=== PATIENT | female | born 1985 | race Caucasian/White ===

== ENCOUNTER 2021-03-19 09:54 | Emergency (ER) | payer OTHER, SELFPAY ==
[2021-03-19 10:02] VITALS: BP 157/90; PULSE 68; RESP 16; TEMP 36.2; O2SAT 98
--- NOTE | 2021-03-19 10:15 | ED.URI ---
HPI - URI/Sore Throat General Chief Complaint: Upper Respiratory Infection Stated Complaint: sore throat Time Seen by Provider: 03/19/21 10:15 Source: patient and RN notes reviewed Mode of arrival: ambulatory Limitations: no limitations History of Present Illness HPI Narrative: 36-year-old female presents to the [facility] for sore throat. Took Aleve yesterday which helped. States she took Luana today. Reports that she was Covid tested today at [facility], rapid was negative, PCR was pending. MD elicited complaint: sore throat Related Data Home Medications Medication Instructions Recorded Confirmed fluoxetine 40 mg PO DAILY 03/19/21 03/19/21 ropinirole 0.25 mg PO BID 03/19/21 03/19/21 Allergies Allergy/AdvReac Type Severity Reaction Status Date / Time No Known Allergies Allergy Verified 03/19/21 10:14 Review of Systems Constitutional: Constitutional: Reports no additional constitutional complaints, Denies chills and Denies fever(s) Eyes: Eyes: Reports no additional eye complaints ENT: Reports as per HPI, Reports nasal congestion and Reports sore throat Cardiovascular: Cardiovascular: Reports no additional cardiovascular complaints and Denies chest pain Respiratory: Respiratory: Reports no additional respiratory complaints, Denies cough and Denies dyspnea Gastrointestinal: Gastrointestinal: Reports no additional gastrointestinal complaints, Denies abdominal pain and Denies nausea Musculoskeletal: Musculoskeletal: Reports no additional musculoskeletal complaints Integumentary/Breasts: Skin/Breast: Reports system reviewed and no additional complaints, except as docu Neurologic: Reports system reviewed and no additional complaints, except as documented Psychiatric: Psychiatric: Reports no additional psychiatric complaints Allergic/Immunologic: Allergic/Immunologic: Reports no additional allergic/immunologic complaints [facility] Past Medical History Medical History (Updated 03/19/21 @ 11:11 by Krystle Maldonado) Anxiety and depression Restless leg Surgical History Surgical History (Updated 03/19/21 @ 10:23 by Krystle Maldonado) No significant past surgical history Social History Social History (Updated 03/19/21 @ 10:23 by Krystle Maldonado) Living arrangements: with family Gender identity (if verbalized by the patient): Female Comments At the time of my signature, I reviewed and agree with the nursing past medical, surgical, social, and family history. There is no relevant family history pertinent to the patient complaint. Exam Const: General: healthy appearing, no acute distress and alert Nutritional Appearance: well nourished Orientation/consciousness: patient oriented x3 Limitations: no limitations HENMT: Head: normal to inspection Ears: external ears normal, TM's normal bilaterally and EAC's normal General nose exam: Normal external nose present Face and sinus: normal facial exam and sinuses nontender Mouth: Yes moist mucous membranes Throat: tonsils normal, uvula midline, postnasal drainage and no uvular edema Eyes: Conjunctivae: conjunctivae normal Pupils: Equal, round and reactive pupils present Neck: Neck: normal visual inspection, no lymphadenopathy and no meningeal signs Chest: Chest palpation & inspection: normal inspection of the chest Resp: Effort & Inspection: normal respiratory effort and no use of accessory muscles Auscultation: clear to auscultation bilaterally, no crackles, no rales, no rhonchi and no wheezes Cardio: Rate: regular rate Rhythm: regular rhythm Back/Spine/Pelvis: Back: no CVA tenderness Skin: General skin exam: normal color Rashes: no rashes Neuro: General: patient oriented x3, moves all extremities, no meningeal signs and no focal motor deficits Speech: normal speech Gait exam (Neuro): Normal gait present Extrem: General: normal to inspection and no pedal edema Psych: Appearance: grossly normal and well kempt Mental Status: mental status grossly norm
== END 2021-03-19 10:30 | disposition home or self-care (01) ==
PROVIDERS: Emergency Provider Nurse Practitioner
DX: R09.82 Postnasal drip (principal); J06.9 Acute upper respiratory infection, unspecified; F41.9 Anxiety disorder, unspecified; F32.A Depression, unspecified; G25.81 Restless legs syndrome
CPT/HCPCS: 87081; 87880; 99213; G0463

== ENCOUNTER 2023-08-06 06:32 | Emergency (ER) | payer OTHER, SELFPAY ==
[2023-08-06] VITALS (11 sets, daily range): BP systolic 127–151; BP diastolic 73–98; PULSE 65–74; RESP 16; TEMP 37.2; O2SAT 94–100
[2023-08-06 07:09] LABS: Basophils Absolute Auto 0.1 K/mm3 (0.0-0.1); Basophils Percent Auto 0.3 % (0.2-1.2); Eosinophils Absolute Auto 7.2 K/mm3 (0-0.3); Eosinophils Percent Auto 37.7 % (0-4.4); Hematocrit 39.4 % (37.0-47.0); Hemoglobin 12.9 g/dL (12.0-15.0); Immature Granulocyte Absolute 0.08 K/mm3 (0.00-0.031); Immature Granulocyte Percent A 0.4 % (0-0.5); Lymphocytes Absolute Auto 1.96 K/mm3 (0.9-3.2); Lymphocytes Percent Auto 10.2 % (18.3-44.2); Mean Corpuscular HGB Conc 32.7 g/dl (32-36); Mean Corpuscular Hemoglobin 27.5 pg (26-34); Mean Platelet Volume 8.2 fl (7.4-10.4); Monocytes Absolute Auto 0.7 K/mm3 (0.1-0.6); Monocytes Percent Auto 3.7 % (2.6-8.5); Neutrophils Absolute Auto 9.1 K/mm3 (1.3-6.7); Neutrophils Percent Auto 47.7 % (45.5-73.1); Platelet Count Result 273 k/mm3 (150-375); Red Blood Count 4.69 M/mm3 (4.2-5.4); Red Cell Distribution Width 14.4 % (11.5-14.5); White Blood Count 19.2 K/mm3 (4.5-10.0)
[2023-08-06 07:14] LABS: Appearance Urine Clear (Clear); Bilirubin Urine Negative (Negative); Blood Urine Negative (Negative); Color Urine Yellow (Yellow); Glucose Urine UA Negative (Negative); Ketones Urine Negative (Negative); Leukocyte Esterase Ur Negative LEU/UL (Negative); Nitrate Urine Negative (Negative); Protein Urine Negative (Negative); Specific Grav Ur 1.009 (1.001-1.035); Urobilinogen Urine 0.2 mg/dL (<2.0)
--- NOTE | 2023-08-06 07:16 | ED.ABDPAIN ---
HPI - Abdominal Pain General Chief Complaint: Abdominal Pain Stated Complaint: abd pain Time Seen by Provider: 08/06/23 06:58 History of Present Illness HPI narrative: Patient is a 38-year-old female who presents ER with abdominal cramping as well as diarrhea. Ten episodes of diarrhea a day for last 3 days. No blood. No antibiotics. No known sick contacts. Denies fevers or chills or sweats. Reports this occurs yearly. She has had an IBD workup that was unremarkable. No alleviating factors. Related Data Home Medications Medication Instructions Recorded Confirmed ropinirole 0.25 mg tablet 0.25 mg PO BID 03/19/21 03/19/21 fluoxetine 40 mg capsule 80 mg PO DAILY 07/03/23 Allergies Allergy/AdvReac Type Severity Reaction Status Date / Time No Known Allergies Allergy Verified 07/03/23 10:58 Review of Systems Review of Systems: All systems reviewed & are unremarkable except as noted in HPI and below Constitutional: Constitutional: Reports no additional constitutional complaints ENT: Reports system reviewed and no additional complaints, except as documented Cardiovascular: Cardiovascular: Reports no additional cardiovascular complaints Respiratory: Respiratory: Reports no additional respiratory complaints Gastrointestinal: Gastrointestinal: Reports abdominal pain, Reports diarrhea, Denies nausea and Denies vomiting Genitourinary: Genitourinary: Reports no additional female genitourinary complaints Musculoskeletal: Musculoskeletal: Reports no additional musculoskeletal complaints [facility] Past Medical History Medical History (Updated 08/06/23 @ 08:56 by River Hidalgo MD) Anxiety and depression IBS (irritable bowel syndrome) Restless leg Surgical History Surgical History (Updated 08/06/23 @ 07:19 by River Hidalgo MD) History of cholecystectomy History of tonsillectomy Family History Family History (Updated 07/03/23 @ 11:03 by Yandy Dockery) Father MDS (myelodysplastic syndrome) Leukemia Mother Hypertension Grandparent Heart disease Cerebrovascular accident Social History Social History (Updated 07/03/23 @ 11:04 by Yandy Dockery) Years smoked: 15 Smoking status: Former smoker Alcohol intake: never Substance use: current Substance use type: marijuana Do You Feel Safe in your Home?: Yes Lack of Transportation: No Lack of Food: Never True Current Housing: I Have Housing Concerned About Future Housing: No Difficulty Paying Gas/Electric Bills: No Difficulty Paying for Meds: No Currently Unemployed: No Education: Bachelor's Degree Difficulty w/ Childcare or Family Care: No Living arrangements: with family Gender identity (if verbalized by the patient): Female Exam Narrative: GENERAL: Well-appearing, well-nourished, and in no acute distress. HEAD: Normocephalic, atraumatic. ENT: Mucous membranes moist. TM's normal. CHEST: Clear to auscultation. No respiratory distress. HEART: Regular rate and rhythm. Normal peripheral pulses. ABDOMEN: Soft, nontender, nondistended. EXTREMITIES: Normal range of motion. No edema. SKIN: Warm, dry, no rash. NEURO: Alert and oriented x3. PSYCH: Normal mood and affect. Course Course Emergency Course: Patient resting comfortably. Feels improved Zofran. Discharged on steroid taper for use in felt gastroenteritis. Patient reports her white blood cell count is typically elevated when this is occurring. She has no localizing tenderness on exam. Nontoxic appearing. Tolerating p.o.. Vital Signs Vital signs: Vital Signs Temperature 98.9 F 08/06/23 06:35 Pulse Rate 74 08/06/23 06:35 Respiratory Rate 16 08/06/23 06:35 Blood Pressure 151/98 H 08/06/23 06:35 Pulse Oximetry 100 08/06/23 06:35 Oxygen Delivery Room Air 08/06/23 06:35 Temperature 98.9 F 08/06/23 06:35 Pulse Rate 65 08/06/23 07:00 Respiratory Rate 16 08/06/23 07:00 Blood Pressure 127/73
[2023-08-06 07:26] LABS: Alanine Aminotransferase 15 U/L (6-35); Albumin Level 4.3 g/dL (3.5-5.1); Alkaline Phosphatase 92 U/L (38-126); Anion Gap 7 mmol/L (4-12); Aspartate Amino Transferase 20 U/L (14-36); Bilirubin,Total 0.4 mg/dL (0.2-1.3); Blood Urea Nitrogen 7 mg/dL (7-17); Carbon Dioxide 22 mmol/L (22-30); Chloride 107 mmol/L (98-107); Estimated CRCL calculation 147 ml/min; Estimated Glomerular Filt Rate > 60; Glucose 108 mg/dL (65-110); Lipase 303 U/L (23-300); Potassium 4.3 mmol/L (3.4-5.0); Sodium 136 mmol/L (137-145)
[2023-08-06] MEDS: ONDANSETRON INJ 4 MG/2 ML VIAL IV PUSH (07:29)
[2023-08-06] MEDS: BELLADONNA ALK/PHENOB ELIX 10 ML, MAG HYDROX/ALUMINUM HYD/SIMETH 30 ML, LIDOCAINE HCL 2... PO (07:29)
[2023-08-06 07:59] LABS: Add Urine Microscopic? NO
== END 2023-08-06 09:18 | disposition home or self-care (01) ==
PROVIDERS: Emergency Medicine; Emergency Provider Emergency Medicine; PCP Family Medicine
DX: K52.81 Eosinophilic gastritis or gastroenteritis (principal); F41.9 Anxiety disorder, unspecified; F32.A Depression, unspecified; G25.81 Restless legs syndrome; Z87.891 Personal history of nicotine dependence; Z90.49 Acquired absence of other specified parts of digestive tract
CPT/HCPCS: 36415; 80053; 81003; 81025; 83690; 85025; 96374; 99284; A9270; J2405

== ENCOUNTER 2023-09-28 00:57 | Day surgery (SDC) | payer OTHER, SELFPAY ==
[2023-09-17 10:30] VITALS: BMI 41.2
[2023-09-28 06:29] VITALS: BP 137/94; PULSE 88; RESP 17; TEMP 36.6; O2SAT 98
[2023-09-28] MEDS: LACTATED RINGERS 1,000 ML 150 ML IV CONT (06:40)
--- NOTE | 2023-09-28 07:18 | WPDANESEPPF ---
Anes - Initial Pre Proc Eval Procedure: Operation Date: 09/28/23 07:30 Proposed Procedures p Esophagogastroduodenoscopy & Colonoscopy - Juan J Rojas MD Date/Time: 09/28/23 07:18 Surgeon: Juan J Rojas MD Pre Op Diagnosis: Dysphagia, Gerd, Diarrhea, IBS-D Patient Data Age: 38 Gender: F Height: 1.63 m Weight: 106.8 kg Last Vital Signs Temp 97.8 F 09/28/23 06:29 Pulse 88 09/28/23 06:29 Resp 17 09/28/23 06:29 BP 137/94 H 09/28/23 06:29 Pulse Ox 98 09/28/23 06:29 O2 Del Method Room Air 09/28/23 06:29 Allergies Allergy/AdvReac Type Severity Reaction Status Date / Time No Known Allergies Allergy Verified 09/28/23 06:27 Home Medications Medication Instructions Recorded Confirmed Type ropinirole 0.25 mg tablet 0.25 mg PO BID 03/19/21 09/17/23 History fluoxetine 40 mg capsule 80 mg PO DAILY 07/03/23 09/17/23 History dicyclomine 10 mg capsule 10 mg PO QID PRN Diarrhea 09/17/23 09/17/23 History Patient hx anesthesia problems: none Family hx anesthesia problems: none Results Review: All pre-operative results and documents have been reviewed as part of the pre-operative evaluation. [facility] Past Medical History Medical History Anxiety and depression IBS (irritable bowel syndrome) Restless leg Surgical History Surgical History History of cholecystectomy History of tonsillectomy Family History Family History Father MDS (myelodysplastic syndrome) Leukemia Mother Hypertension Grandparent Heart disease Cerebrovascular accident Social History Social History Years smoked: 15 Smoking status: Former smoker Tobacco type: cigarettes Alcohol intake: never Substance use: current Substance use type: marijuana Do You Feel Safe in your Home?: Yes Lack of Transportation: No Lack of Food: Never True Current Housing: I Have Housing Concerned About Future Housing: No Difficulty Paying Gas/Electric Bills: No Difficulty Paying for Meds: No Currently Unemployed: No Education: Bachelor's Degree Difficulty w/ Childcare or Family Care: No Living arrangements: with family Gender identity (if verbalized by the patient): Female Spiritual care concerns: No Anes - Eval Final PreProcedure Day of Procedure 09/28/23 07:18 Patient weight: morbidly obese Heart: regular rate and rhythm Lungs: clear to auscultation Airway: Mallampati scale class II Neurological: alert and oriented Last oral intake: >/= 8 hours ASA classification: III Emergent: no Anesthetic plan: proceed Anesthesia type and monitoring: general GIVS and standard monitoring Results Review: All pre-operative results and documents have been reviewed as part of the pre-operative evaluation. Informed Consent: The patient's anesthetic plan and its attendant risks and benefits were discussed with the patient/family/POA. Questions were solicited and answers provided to the satisfaction of the patient/family/POA.
--- NOTE | 2023-09-28 07:33 | PM.HPGS ---
History of Present Illness History of Present Illness Consent: Risks, benefits, and alternatives have been discussed and questions answered. Patient agrees to proceed with procedure. Chief complaint: Dysphagia, Gerd, Diarrhea, IBS-D Narrative: Vicky Rubin is a 38 year old female here for egd and colonoscopy, last time about 6 years ago. She has years of diarrhea and abdominal pain and was Dx with gastroenteritis and started empirically taper course of prednisone. Patient states that over the past few years she has intermittent episodes of a collection of symptoms including abdominal pain, bloating, swallowing difficulty, reflux, and diarrhea Review of Systems Review of Systems: All systems reviewed & are unremarkable except as noted in HPI and below PMFSH Past Medical History Medical History Anxiety and depression IBS (irritable bowel syndrome) Restless leg Surgical History Surgical History History of cholecystectomy History of tonsillectomy Family History Family History Father MDS (myelodysplastic syndrome) Leukemia Mother Hypertension Grandparent Heart disease Cerebrovascular accident Social History Social History Years smoked: 15 Smoking status: Former smoker Tobacco type: cigarettes Alcohol intake: never Substance use: current Substance use type: marijuana Do You Feel Safe in your Home?: Yes Lack of Transportation: No Lack of Food: Never True Current Housing: I Have Housing Concerned About Future Housing: No Difficulty Paying Gas/Electric Bills: No Difficulty Paying for Meds: No Currently Unemployed: No Education: Bachelor's Degree Difficulty w/ Childcare or Family Care: No Living arrangements: with family Gender identity (if verbalized by the patient): Female Spiritual care concerns: No Meds Home Medications and Allergies Home Medications Medication Instructions Recorded Confirmed Type ropinirole 0.25 mg tablet 0.25 mg PO BID 03/19/21 09/17/23 History fluoxetine 40 mg capsule 80 mg PO DAILY 07/03/23 09/17/23 History dicyclomine 10 mg capsule 10 mg PO QID PRN Diarrhea 09/17/23 09/17/23 History Allergies Allergy/AdvReac Type Severity Reaction Status Date / Time No Known Allergies Allergy Verified 07/01/24 06:27 Vital Signs Vital Signs - 24 hr 09/28/23 06:29 Temperature 97.8 F Pulse Rate 88 Respiratory Rate 17 Blood Pressure 137/94 H Pulse Oximetry 98 Oxygen Delivery Room Air Exam Const: General: comfortable and no acute distress HENMT: Face/Nose/Sinus: Normal nares present Eyes: General: appearance normal, both eyes and all related structures Neck: Neck: no JVD Resp: Auscultation: clear to auscultation bilaterally Cardio: Rate: regular rate Rhythm: regular rhythm GI: Inspection: non-distended GI Palp: Yes Soft to palpation Skin: General skin exam: normal color Neuro: General: gait normal Speech: normal speech Extrem: General: normal to inspection Psych: Mental Status: mental status grossly normal Assessment and Plan Assessment and plan (1) Abdominal pain: Qualifiers: Abdominal location: upper abdomen, unspecified Qualified Code(s): R10.10 - Upper abdominal pain, unspecified Code(s): R10.9 - Unspecified abdominal pain Status: Acute Assessment and Plan: egd with bx (2) Abdominal bloating: Code(s): R14.0 - Abdominal distension (gaseous) Status: Acute (3) Diarrhea: Qualifiers: Diarrhea type: unspecified type Qualified Code(s): R19.7 - Diarrhea, unspecified Code(s): R19.7 - Diarrhea, unspecified Status: Acute Assessment and Plan: colonoscopy with bx
[2023-09-28] MEDS: BENZOCAINE (*SP) 60 ML SPRAY CAN (HURRICAINE) 1 SPRAY MUCOUS MEM (07:36)
--- NOTE | 2023-09-28 07:56 | SUR.OPER ---
EGD START 737, END 741 COLONOSCOPY START 745, END 755
[2023-09-28 08:00] VITALS: BP 116/71; PULSE 62; RESP 15; O2SAT 97
[2023-09-28 08:10] VITALS: BP 121/70; PULSE 56; RESP 17; O2SAT 98
[2023-09-28 08:20] VITALS: BP 134/91; PULSE 69; RESP 18; O2SAT 100
== END 2023-09-28 08:29 | disposition home or self-care (01) ==
PROVIDERS: PCP Family Medicine; Referring Provider Nurse Practitioner Family; Visit Provider Internal Medicine Gastroenterology
PROC: 0DJ08ZZ Inspection of Upper Intestinal Tract, Via Natural or Artificial Opening Endoscopic (ICD-10-PCS; CPT 43235; principal; 2023-09-28 07:30)
DX: K52.832 Lymphocytic colitis (principal); K51.40 Inflammatory polyps of colon without complications; K64.8 Other hemorrhoids; K29.60 Other gastritis without bleeding; G25.81 Restless legs syndrome; F41.8 Other specified anxiety disorders; F12.90 Cannabis use, unspecified, uncomplicated; Z87.891 Personal history of nicotine dependence; E66.01 Morbid (severe) obesity due to excess calories; Z68.41 Body mass index [BMI] 40.0-44.9, adult
CPT/HCPCS: 45380; 45385; 43239; 88305; J2704; J7120

== ENCOUNTER 2024-07-04 14:46 | Outpatient (CLI) | payer OTHER, SELFPAY ==
--- NOTE | ~2024-07-04 | MM_ITS ---
EXAMINATION: MM screening jose BI w valentín HISTORY: Screening TECHNIQUE: Craniocaudal and mediolateral oblique 3-D tomosynthesis images were obtained and synthetic 2-D images were generated. CAD analysis was submitted and interpreted. COMPARISON: No prior mammogram is available for comparison at this institution. BREAST PARENCHYMAL COMPOSITION: There are scattered areas of fibroglandular density. FINDINGS: There is no evidence of suspicious mass, calcification, or architectural distortion to sugg est malignancy in either breast. There has been no suspicious interval change. IMPRESSION: 1. No mammographic evidence of malignancy. 2. Recommend routine screening mammography in one year. BI-RADS Category 1: Negative Reviewed, dictated and finalized at location A.
== END 2024-07-04 14:47 | disposition home or self-care (01) ==
PROVIDERS: PCP Obstetrics & Gynecology Gynecology; Visit Provider Obstetrics & Gynecology Gynecology
DX: Z12.31 Encounter for screening mammogram for malignant neoplasm of breast (principal)
CPT/HCPCS: 77063; 77067

== ENCOUNTER 2024-11-15 17:46 | Emergency (ER) | payer OTHER, SELFPAY ==
--- OUTSIDE RECORDS SUMMARY | 2018-04-14 19:00 | XMS_ITS | Continuity of Care Document ---
Author Organization [facility] Address [address] [place] [address] Phone Care Team Providers Care Plate Molder Name Role Phone Rudy Mccullough MD Unavailable Unavailable Advance Directives Directive Yes / No Effective Date File Name No Information Encounters Encounter Description Practice Location Reason(s) For Visit Diagnoses Date Provider Providers Copied on Encounter [facility], [address], [place], [place], [id number], [place] tel:[phone] [facility] No Information Jamel Grant. [address] [facility] [place], [place], [id number], [place]. tel:[phone] Referring Provider: Collin Sarmiento [address] [place], [address]. tel:[phone] Family History Family Member Type Diagnosis Age At Onset No Information Payers Payer name Insurance type Covered libertarian ID Authoriza tion(s) [facility] CI [id number] Social History Type Description Quantity Date Captured Comments Sex Female Smoking Status No Information Chief Complaint And Reason For Visit No Information Reason For Referral Reason For Referral No Information History Of Present Illness Encounter Date Complaint History Of Prese nt Illness No Information Functional Status Date Functional Assessmen t No Information Instructions Date Instruction Additional Infor mation No Information Assessments Type Assessment Date No Information Patient Care Teams Name Effective Dates (start - stop) Status Members No Information
--- OUTSIDE RECORDS SUMMARY | 2018-04-14 19:00 | XMS_ITS | Continuity of Care Document ---
Author Organization [facility] Address [address] [place] [address] Phone Care Team Providers Care Community Recreation Programmer Name Role Phone Rudy Mccullough MD Unavailable Unavailable Advance Directives Directive Yes / No Effective Date File Name No Information Encounters Encounter Description Practice Location Reason(s) For Visit Diagnoses Date Provider Providers Copied on Encounter [facility], [address], [place], [place], [id number], [place] tel:[phone] [facility] No Information Jamel Grant. [address] [facility] [place], [place], [id number], [place]. tel:[phone] Referring Provider: Collin Sarmiento [address] [place], [address]. tel:[phone] Family History Family Member Type Diagnosis Age At Onset No Information Payers Payer name Insurance type Covered green party ID Authoriza tion(s) [facility] CI [id number] Social History Type Description Quantity Date Captured [...]
--- NOTE | ~2024-11-15 | CT_ITS ---
EXAMINATION: CT abdomen pelvis w con DATE: 11/15/2024 20:52 INDICATION: Diffuse abdominal pain TECHNIQUE: Computed tomography (CT) of the abdomen and pelvis was performed with 100 cc Omnipaque 350 intravenous contrast. The dose-length product was 1237.45 mGy-cm. Automated exposure control and iterative reconstruction technique were employed. COMPARISON: None. FINDINGS: There is dilated small bowel with segmental thickening of the mid and distal small bowel. Normal appendix. There is focal narrowing of the sigmoid colon which may represent normal contractility. There is fluid throughout the colon is well. No free air. There is ascites. No adnexal masses. No significant vascular abnormality. Small hiatal hernia with thickening of the distal esophagus, suspicious for esophagitis. There are cholecystectomy clips. No lytic or blastic lesions. There is mild scoliosis. IMPRESSION: 1. Fluid-filled distended small bowel and colon with segmental thickening of the mid and distal small bowel, suspicious for enterocolitis. Consider infectious/inflammatory etiologies. 2: Ascites. 3: Small hiatal hernia with thickening of the distal esophagus, suspicious for esophagitis. Reviewed, dictated and finalized at location A. IMPRESSION: 1. Fluid-filled distended small bowel and colon with segmental thickening of th e mid and distal small bowel, suspicious for enterocolitis. Consider infectious /inflammatory etiologies. 2: Ascites. 3: Small hiatal hernia with thickening of the distal esophagus, suspicious for esophagitis.
--- OUTSIDE RECORDS SUMMARY | 2024-11-15 17:48 | XMS_ITS | Encounter Summary ---
Author Organization [facility] Address [address] [place] [address] Care Team Providers Care Legal Intern Name Role Phone Miguelina Arrieta MD Unavailable [phone] Collin Pascal MD Primary Care Provider [phone] Encounter Details Date Type Department Care Team (Late st Contact Info) Description 06/02/2018 Lab Requisition [facility] Care Pathology Lab [address] [place] [address] [place] [address] [address] Social History Tobacco Use Types Packs/Day Years Used Date Smoking Tobacco: Former Cigarettes 0.3 15.7 0 04/15/2002 - 01/13/2018 Smokeless Tobacco: Former Comments:quit in Oct Alcohol Use Standard Drinks/Week Comments Yes 1.7 (1 standard drink = 0.6 oz p ure alcohol) once a month Comments No Sex and Gender Information Value Date Recorded Sex Assigned at Not on file Legal Sex Female 6:00 AM FERRY BOAT CAPTAIN Gender Identity Not on file Sexual Orientation Not on file 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 Answer Date of Assessment Author No 04/15/2018 3:14 PM Josselyn Boston RN * Is person blind or have serious difficulty seeing? Answer Date of Assessment Author No 04/15/2018 3:14 PM Josselyn Boston RN * Does person have serious difficulty walking/climbing stairs? Answer Date of Assessment Author No 04/15/2018 3:14 PM Josselyn Boston RN * Does person have difficulty dressing/bathing? Answer Date of Assessment Author No 04/15/2018 3:14 PM Josselyn Boston RN * Does person have difficulty doing errands alone? Answer Date of Assessment Author No 04/15/2018 3:14 PM Josselyn Boston RN documented as of this encounter Mental Status * Does person have difficulty concentrating/remembering/making decisions? Answer Entry Date Author No 04/15/2018 3:14 PM Josselyn Boston RN documented in this encounter Plan of Treatment Not on file documented as of this encounter Procedures Procedure Name Priority Date/Time Associated Diagnosis Comments SLIDE PREP HISTOLOGY Routine 06/01/2018 11:30 AM FERRY BOAT CAPTAIN documented in this encounter Results * SLIDE PREP HISTOLOGY (06/01/2018 11:30 AM FERRY BOAT CAPTAIN) Client Specimen ID # [id number] 06/11/2018 3:24 PM T [facility] Number of Blocks Received 0 06/11/2018 3:24 PM T [facility] Number of Slides 1 06/11/2018 3:24 PM T [facility] Number of Control Slides 1 06/11/2018 3:24 PM T [facility] Pathology/Cytolo gy BONE MARROW SPECIMEN / Unknown 06/01/2018 11:30 AM FERRY BOAT CAPTAIN 06/02/2018 4:32 PM [employer] CAPTAIN Tru Velez MD LAB - PATHOLOGY/CYTOLOGY ORD ERABLES Final Result Performing Organization Address City/State/[facility] Co de Phone Number [facility] [address] [phone] documented in this encounter Visit Diagnoses Not on filedocumented in this encounter Care Teams Legal Intern Relationship Specialty [place] [address] [place] [address] PCP - General Internal Medicine 01/08/16 [place] [address] [place] [address] Obstetrics and Gynecology 12/22/12 documented as of this encounter
--- OUTSIDE RECORDS SUMMARY | 2024-11-15 17:48 | XMS_ITS | Clinical Summary ---
Author Organization [email or web address] Address [address] [place] [address] Care Team Providers Care Organizational Effectiveness Director Name Role Phone Miguelina Arrieta MD Unavailable [phone] Collin Pascal MD Primary Care Provider [phone] Source Comments [email or web address],non-owned Affiliates and Associated Physician Practices is amultiple site organization consisting of ambulatory clinics and hospital sitesin [place], [place], [place] and [place]. This disclosure is being madepursuant to the Care Everywhere program and may not contain all information available regarding this patient. Last updated 17.[email or web address] Allergies No known active allergies Medications * This document contains information received from the source organization and may not represent a complete record from that organization. * Be aware that medications may not be up to date on this document. Alwaysverify current medications with the patient. Vit-Fe Fumarate-FA ( VITAMIN) 27-0.8 MG tablet Take 1 tablet by mouth once daily Active rOPINIRole (REQUIP) 0.25 MG tabletIndicatio ns:Restless Leg Syndrome Take 0.5 mg by mouth at bedtime Reasons: Restless Leg Syndrome Active iron polysacch rmlin-C01-HQ (FERREX 150 FORTE) capsule Take 1 capsule by mouth once daily 30 capsule 2 9 Active Additional Information Patient not taking.Reported on 01/12/2019 LEVOTHYROXINE SODIUM PO Take 50 mcg by mouth Active folic acid (FOLVITE) 1 MG tablet Take 1 mg by mouth once daily Active dexamethasone (DECADRON) 0.75 MG tablet Take 0.75 mg by mouth once Active vitamin D, cholecalciferol , 50 MCG (2000 UT) tablet Take 2,000 Units by mouth once daily Active progesterone injection Inject into muscle once daily Active estradiol valerate (DELESTROGEN) 20 MG/ML injection Inject 20 mg into muscle every 7 days Active Loperamide (IMODIUM) 2 MG tablet Take 1 tablet by mouth 4 times daily as needed for Diarrhea 20 tablet 0 Active Additional Information Patient not taking.Reported on 06/08/2020 ondansetron (ZOFRAN) 4 MG tablet Take 1 (one) tablet by mouth every 6 hours as needed for Nausea/Vomiting 20 tablet 1 Active famotidine (PEPCID) 20 MG tablet Take 1 (one) tablet by mouth once daily 30 tablet 1 Active predniSONE (DELTASONE) 10 MG tablet Take 4 tablets daily for 4 days, take 3 tablets daily for 2 days, take 2 tablets daily for 2 days, then take 1 tablet daily for 2 days 28 tablet 1 Active Active Problems Problem Noted Date Diagnosed Date Esophagitis 04/15/2018 Eosinophilia 04/15/2018 Class 3 severe obesity due t o excess calories without serious comorbidity with body mass index (BMI) of 40.0 to 44.9 in adult 02/09/2018 Migraine without aura and wi thout status migrainosus, not intractable 11/28/2016 Recurrent major depressive disorder, in full rem ission 11/28/2016 Tobacco abuse 11/28/2016 Resolved Problems Problem Noted Date Diagnosed Date Resolved Date Abdominal pain, generalized 04/15/2018 04/15/2018 Gastroenteritis 04/15/2018 04/29/2018 Immunizations Immunization Administration Dates Next Due INFLUENZA VACCINE 01/25/2019 Family History Medical History Relation Name Comments Other - Hematologic Father thinks r elated to work exposure with lead. MDS CVA Maternal Grandfather Cancer - Other Maternal Grandfather brain Other - Cardiac Maternal Grandfather Hypertension Mother Diabetes Other Diabetes Paternal Grandmother Relation Name Status Comments Father Alive Maternal Grandfather Alive Maternal Grandmother Alive Mother Alive Other Paternal Grandfather Paternal Grandmother Sister Alive Social History Tobacco Use Types Packs/Day Years Used Date Smoking Tobacco: Former Cigarettes 0.3 15.7 0 04/15/2002 - 01/13/2018 Smokeless Tobacco: Current Tobacco Cessation:Counseling Given: Yes Alcohol Use Standard Drinks/Week Comments Yes 1.7 (1 standard drink = 0.6 oz p ure alcohol) social Comments No Sex and Gender Information Value Date Recorded Sex Assigned at Not on file Legal Sex Female 6:00 AM HOUSECALLS NURSE Gender Identity Not on file Sexual Orientation Not on file 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 Not on file Not on file Not on file Last Filed Vital Signs Vital Sign Reading Time Taken Comments Blood Pressure 147/72 06/08/2020 8:30 PM HOUSECALLS NURSE Pulse 52 06/08/2020 8:30 PM HOUSECALLS NURSE Temperature 36.3 C (97.3 F) 06/08/2020 2:16 PM HOUSECALLS NURSE Respiratory Rate 21 06/08/2020 8:30 PM HOUSECALLS NURSE Oxygen Saturation 93% 06/08/2020 8:30 PM HOUSECALLS NURSE Inhaled Oxygen Concentration - - Weight 95.3 kg (210 lb) 06/08/2020 2:16 PM HOUSECALLS NURSE Height 162.6 cm (5' 4) 06/08/2020 2:16 PM HOUSECALLS NURSE Body Mass Index 36.05 06/08/2020 2:16 PM HOUSECALLS NURSE Plan of Treatment Health Maintenance Due Date Last Done Comments LIPID TESTING 1983 MAMMOGRAM 1983 DTAP/TDAP/TD VACCINES (1 - Tdap) 2002 HEPATITIS B VACCINE (1 of 3 - 19+ 3-dose series) 2002 HPV VACCINE (1 - 3-dose SCDM series) 2010 PAP with HPV 01/07/2021 01/08/2016 COVID-19 VACCINE (1 - 2023-2 5 season) 2023 DEPRESSION SCREENING 03/30/2024 INFLUENZA VACCINE (#1) 2024 9, 01/10/2015, 12/28/2014 ZOSTER VACCINE (1 of 2) 2033 HIV SCREENING Completed 04/15/2018, 01/28/2018 HEPATITIS C SCREENING Completed 05/24/2018 HIB VACCINE Aged Out No longer eligi ble based on patient's age to complete this topic MENINGOCOCCAL (Group B) VACCINE SHARED DECISION-MAKING Aged Out No longer eligible based on patient's age to complete this topic MENINGOCOCCAL GROUPS A/C/Y/W VACCINE Aged Out No longer eligible b ased on patient's age to complete this topic PNEUMOCOCCAL VACCINE Aged Out No long er eligible based on patient's age to complete this topic Procedures Procedure Name Priority Date/Time Associated Diagnosis Comments HEPATITIS SCREEN ACUTE Routine 05/24/2018 3:27 PM HOUSECALLS NURSE Eosinophilia HIV-1 HIV-2 ANTIBODY + HIV P24 AG PANEL Routine 04/15/2018 5:14 PM HOUSECALLS NURSE PAP W PEDRO HPV HR+HPV 16/18 Routine 01/08/2016 6:02 PM CDT Well woman exam with routine gynecological exam Special screening examination for human papillomavirus (HPV) from Last 3 Months or Most Recently Relevant to Health Maintenance Results * HEPATITIS SCREEN ACUTE (05/24/2018 3:27 PM HOUSECALLS NURSE) Hepatitis A Virus Antibody IgM Negative Negative [facility] ACCOUNT BILL Hepatitis B Virus Surface Antigen Negative Negative [facility] ACCOUNT BILL Hepatitis B Core Virus Antibody IgM Negative Negative [facility] ACCOUNT BILL Hepatitis C Antibody 0.4 0.0 - 0.9 s/co ratio [facility] ACCOUNT BILL Comment: Negative: < 0.8 Indeterminate: 0.8 - 0.9 Positive: > 0.9 . The CDC recommends that a positive HCV antibody result be followed up with a HCV Nucleic Acid Amplification test (606008). Blood BLOOD SPECIMEN / Unknown 05/24/2018 3:27 PM HOUSECALLS NURSE 05/24/2018 Narrative Resulting Agency Comment [facility] [place] [address] [id number] Shaquille Franco MD LAB - CHEMISTRY ORDERABLES Final Result [facility] ACCOUNT BILL [address] [place] [address] * HIV-1 HIV-2 ANTIBODY + HIV P24 AG PANEL (04/15/2018 5:14 PM HOUSECALLS NURSE) HIV1/2 Ab + P24 Ag Non Reactive Non Reactive 04/16/2018 11:49 AM HOUSECALLS NURSE [facility] Blood BLOOD SPECIMEN / Unknown Lab Venipuncture / Unknown 04/15/2018 5:14 PM HOUSECALLS NURSE 04/15/2018 5:42 PM HOUSECALLS NURSE Narrative [facility] - 04/16/2018 11:49 AM HOUSECALLS NURSE No Laboratory evidence of HIV infection. Annita Coppola MD LAB - CHEMISTRY ORDERABLES Final Result [facility] [place] [address] * PAP W PEDRO HPV HR+HPV 16/18 (PO REF LAB) (01/08/2016 6:02 PM CDT) Diagnosis [facility] ACCOUNT BILL Comment:NEGATIVE FOR INTRAEP ITHELIAL LESION AND MALIGNANCY. Specimen Adequacy [facility] ACCOUNT BILL Comment: Satisfactory for evaluation. Endocervical and/or squamous metaplastic cells (endocervical component) are present. Clinician Provided ICD10 [facility] ACCOUNT BILL Comment: Z01.419 Z30.09 Z11.51 Performed by [facility] ACCOUNT BILL Comment:Shalini Celaya, Cytote hnologist (ASCP) Comment . [facility] ACCOUNT BILL Note [facility] ACCOUNT BILL Comment: The Pap smear is a screening test designed to aid in the detection of premalignant and malignant conditions of the uterine cervix. It is not a diagnostic procedure and should not be used as the sole means of detecting cervical cancer. Both false-positive and false-negative reports do occur. . IGLBP CPT Code Automation [facility] ACCOUNT BILL Comment: This liquid based ThinPrep(R) pap test was screened with the use of an image guided system. Human papillomavirus Other hr types Negative Negative [facility] ACCOUNT BILL Human papillomavirus 16 Negative Negative [facility] ACCOUNT BILL Human papillomavirus 18 Negative Negative [facility] ACCOUNT BILL Comment: This test detects fourteen high-risk HPV types: HPV16, HPV18 and twelve other high-risk types (31, 33, 35, 39, 45, 51, 52, 56, 58, 59, 66, 68) without differentiation. MICROSCOPIC CYTOLOGIC EXAMINATION OF SMEAR OF SPECIMEN FROM FEMALE GENITAL TRACT PREPARED USING PAPANICOLAOU TECHNIQUE / Unknown 01/08/2016 6:02 PM CDT 01/09/2016 6:37 AM CDT Narrative [facility] ACCOUNT BILL - 01/12/2016 3:11 PM CDT No. of containers..01 CYTYC Thin Prep Vial Resulting Agency Comment [facility] [id number] [place] Miguelina Arrieta MD LAB - PATHOLOGY/CYTOLOGY RAMIRO DORADO Final Result [facility] ACCOUNT BILL [address] [place] [address] from Last 3 Months or Most Recently Relevant to Health Maintenance Insurance [facility] [place] [id number] [facility] [place] [id number] * Guarantor: VICKY RUBIN Account Type Relation to Patient Date of Phone Billing Address Personal/Family [address] [place] [address] [facility] SELF PAY NO INSURANCE Member Subscriber Plan / Payer (Ef fective for All Dates) Name:RubinVicky Member ID:Not on file Relation to Subscriber:Not on file Name:RUBINVICKY Subscriber ID:Not on file Address: [address] [place], [address] Payer ID:Not on file Group ID:Not on file Type:Self Pay Address: [place], [place] * Guarantor: VICKY RUBIN Account Type Relation to Patient Date of Phone Billing Address Personal/Family [address] [place], [address] [employer] SELF PAY NO INSURANCE Member Subscriber Plan / Payer (Ef fective for All Dates) Name:Scottie Vicky Member ID:Not on file Relation to Subscriber:Not on file Name:RUBINVICKY Subscriber ID:Not on file Address: [address] [place], [address] Payer ID:Not on file Group ID:Not on file Type:Self Pay Address: [place], [place] * Guarantor: VICKY RUBIN Account Type Relation to Patient Date of Phone Billing Address Personal/Family [address] [place], [address] [employer] SELF PAY NO INSURANCE Member Subscriber Plan / Payer (Ef fective for All Dates) Name:Vicky Rubin Member ID:Not on file Relation to Subscriber:Not on file Name:VICKY RUBIN Subscriber ID:Not on file Address: [address] [place], [id number] Payer ID:Not on file Group ID:Not on file Type:Self Pay Address: [place], [place] Advance Directives * Full Code (Latest Code Status on File) Date Activated Date Inactivated Comments 04/15/2018 4:15 PM 04/19/2018 4:20 PM * Full Code Date Activated Date Inactivated Comments 04/15/2018 2:52 PM 04/15/2018 4:15 PM Care Teams Organizational Effectiveness Director Relationship Specialty [place] [address] [place] [address] PCP - General Internal Medicine 01/08/16 [place] [address] [place] [address] Obstetrics and Gynecology 12/22/12
--- OUTSIDE RECORDS SUMMARY | 2024-11-15 17:48 | XMS_ITS | Clinical Summary ---
Author Organization [facility] Address [address] [place] [address] Care Team Providers Care Quickbooks Bookkeeper Name Role Phone Collin Pascal MD Primary Care Provider + Allergies No known active allergies Medications etonogestrel-et hinyl estradiol (NUVARING) 0.12-0.015 mg/24 hr vaginal ring insert 1 vaginal ring by vaginal route every month leave in place for 3 weeks, remove for 1 week 0 Ring 0 05/17/2015 Active topiramate (TOPAMAX) 50 mg tablet TAKE 2 TABLET BY MOUTH TWICE DAILY 360 tablet 12/08/2016 Active escitalopram (LEXAPRO) 10 mg tablet TAKE 1 TABLET BY MOUTH EVERY DAY 90 tablet 01/12/2017 Active Active Problems Problem Noted Date Diagnosed Date Healthcare maintenance 11/28/2016 Medication management 11/28/2016 Recurrent major depressive disorder, in full rem ission 11/28/2016 Migraine without aura and wi thout status migrainosus, not intractable 11/28/2016 Tobacco abuse 11/28/2016 Biliary dyskinesia 10/19/2013 Overview (07/04/2016): Biliary dyskinesia Immunizations Immunization Administration Dates Next Due Influenza, Quadrivalent, Spl it, Preservative Free, Intradermal 01/10/2015 Influenza, Trivalent, IM (MDV) 12/28/2014 Surgical History Surgery Date Site/Laterality Comments BREAST BIOPSY 1999 Breast biopsy OTHER SURGICAL HISTORY 2013 abd pain, vomiting: [facility] ER Visit OTHER SURGICAL HISTORY excisional left breast mass / benign OTHER SURGICAL HISTORY extraction of wisdom teeth CHOLECYSTECTOMY Cholecystectomy OTHER SURGICAL HISTORY 2016 gi problem : Medical Management Medical History Medical History Date Comments Hx Other Medical wisdom teeth re moved Hx Other Medical amh er fu stoma ch virus Hx Other Medical abd pain, vomit ing Hx Other Medical migraines; Comm ents: GDS 10/20/2013 - Hx Other Medical gi problem; Com ments: ct blood work ua stool xray; Outcome: resolved Family History Medical History Relation Name Comments Diabetes Father's Brother Diabetes me llitus; Hypertension Mother Hypertension; Diabetes Other Diabetes mellit us; Hypertension Other Hypertension; Diabetes Paternal Grandmother Diabete s mellitus; Relation Name Status Comments Father's Brother Mother Other Paternal Grandmother Social History Tobacco Use Types Packs/Day Years Used Date Smoking Tobacco: Some Days Alcohol Use Standard Drinks/Week Comments Yes 0 (1 standard drink = 0.6 oz pur e alcohol) Comments Unknown Sex and Gender Information Value Date Recorded Sex Assigned at Not on file Legal Sex Female 11:55 PM RESPIRATORY THERAPIST ASSISTANT Gender Identity Not on file Sexual Orientation Not on file Obstetrics History Last Filed Vital Signs Vital Sign Reading Time Taken Comments Blood Pressure 118/78 11/28/2016 7:47 AM CDT Pulse 60 11/28/2016 7:47 AM CDT Temperature - - Respiratory Rate 16 11/28/2016 7:47 AM CDT Oxygen Saturation 99% 10/08/2013 1:22 PM CDT Inhaled Oxygen Concentration - - Weight 96.6 kg (213 lb) 11/28/2016 7:47 AM CDT Height 162.6 cm (5' 4) 11/28/2016 7:47 AM CDT Body Mass Index 36.56 11/28/2016 7:47 AM CDT Plan of Treatment Not on file [place] [address] [place] [address] CHOICE PLUS [place] [id number] [facility] CHOICE PLUS Care Teams Quickbooks Bookkeeper Relationship Specialty Start Date End Date Collin Pascal MD [address] [place] [address] PCP - General 06/27/16
--- OUTSIDE RECORDS SUMMARY | 2024-11-15 17:48 | XMS_ITS | Patient Health Record ---
Author Organization [facility] Address [address] [place] [address] Care Team Providers Care Software Engineer Kernel Name Role Phone Traci Cisse Unavailable [phone] Rasheed Julian Unavailable [phone] Allergies No Known Allergies Results Component Value Reference Range Notes UDT Reviewed date:07/29/2024 05:04:35 PM Interpretation: Performing Lab: Notes/Report: THC n 0 - 50 ng/ml Cocaine n 0 - 300 ng/ml Amphetamine n 0 - 1000 ng/ml Buprenorphine (BUP) n 0 - 10 ng/ml Secobarbital (Bar) n 0 - 300 ng/ml Oxazepam (BZO) n 0 - 300 ng/ml 5-ovhgcgaeen-5,9-vvnvqayc-6,3-diphenylpyrrolidine (MARCOS P) n 0 - 300 ng/ml Methamphetamine (MET) n 0 - 1000 ng/ml Methylenedioxymethamphetamine (MDMA) n 0 - 500 ng/ml Morphine (MOP 300/QDI8006) n 0 - 300 ng/ml Methadone (MTD) n 0 - 300 ng/ml Phencyclidine (PCP) n 0 - 25 ng/ml Nortriptyline (TCA) n 0 - 1000 ng/ml Oxycodone n 0 - 300 ng/ml x n 0 - 300 ng/ml Reason For Referral No Information Medications Medication SIG (Take, Route, Frequency, Duration) Notes Start Date End Date Status Atorvastatin Calcium 10 MG Tablet 1 tablet Orally Once a day Active Omeprazole 40 MG Capsule Delayed Release 1 capsule 1/2 to 1 hour before morning meal Orally Once a day Active Budesonide 3 MG Capsule Delayed Release Particles 1 capsule Orally Active rOPINIRole HCl 3 MG Tablet 1 tablet 1 to 3 hours before bedtime Oral Once a day 07/27/2023 Active Dicyclomine HCl 10 MG Capsule 2 capsules Orally Three times a day Active FLUoxetine HCl 40 MG Capsule 2 capsule every morning Oral Once a day; Duration: 90 days taking over script Active Zepbound 12.5 MG/0.5ML Solution Auto-injector 0.5 mL Subcutaneous Active Social History Tobacco Use: Social History Observation Description Date Details (start date - stop date) Former Smoker NA - NA Sex Assigned At : Social History Observation Description Sex Assigned At Female Social History Social History Social Info Question Answer Notes Household: Marital Status: Drug/Alcohol: Social Info Question Answer Notes Alcohol Screen (Audit-C) Did you have a drink containing alcohol in the past year? No Drugs Have you used drugs other than those for medical reasons in the past 12 months? Yes Caffeine Intake: 1-2 cups per day Tobacco Use: Social Info Question Answer Notes Tobacco Use/Smoking Tobacco use: former smoker How long has it been since you last smoked? 1-5 years Additional Details Category Social Info Options Details Miscellaneous: Exercise: none Migrated Social History Migrated Social History Alcohol Intake: None 04/27/2023,Tobacco Years: Former smoker 04/27/2023 Problems Problem Type SNOMED Code ICD Code Onset Dates Problem Status W/U Status Risk Notes Problem Generalized anxiety disorder (34145088) QUITA (generalized anxiety disorder) (F41.1) Active confirmed Problem Mild recurrent major depression (15589005) MDD (major depressive disorder), recurrent episode, mild (F33.0) Active confirmed Problem Restless legs (16148064) Restless leg (G25.81) Active confirmed Vital Signs Heart Rate 73 /min 07/29/2024 Height-cm 160.02 cm 07/29/2024 Blood pressure diastolic 86 mm Hg 07/29/2024 Weight-kg 88.45 kg 07/29/2024 Height 63.00 in 07/29/2024 Blood pressure systolic 127 mm Hg 07/29/2024 Weight 195 lbs 07/29/2024 BMI 34.54 kg/m2 07/29/2024 Encounters Encounter Location Date Provider Diagnosis [facility] [address] [facility] [address] [place] [address] 03/04/2024 Rasheed Julian [facility] [address] [facility] [address] [place] [address] 07/29/2024 Traci Cisse MDD (major depressiv e disorder), recurrent episode, mild F33.0 ; QUITA (generalized anxiety disorder) F41.1 ; Restless leg G25.81 ; Encounter for screening for depression Z13.31 and Encounter for screening for cardiovascular disorders Z13.[address] [facility] [address] [place] [address] 03/08/2024 Rasheed Julian [address] [facility] [address] [place] [address] 06/24/2024 Traci Cisse Assessments Encounter Date Diagnosis (ICD Code) Assessment Notes Treatment Notes Treatment Clinical Notes Section Notes 07/29/2024 QUITA (generalized anxiety disorder) (ICD-10 - F41.1) 07/29/2024 MDD (major depressive disorder), recurrent episode, mild (ICD-10 - F33.0) SSRI/SNRI side effects discussed including but not limited to, gastric upset, nausea, vomiting, diarrhea and/or constipation, weight changes, sexual side effects including loss of libido, increased suicidal thoughts/behavi ors in children and young adults, and serotonin syndrome. 07/29/2024 Restless leg (ICD-10 - G25.81) Recommended magnesium glycinate for restless legs. Management per PCP, pramipexole may be a fair option, alright to take with fluoxetine 07/29/2024 Encounter for screening for depression (ICD-10 - Z13.31) 07/29/2024 Encounter for screening for cardiovascular disorders (ICD-10 - Z13.6) 07/29/2024 Other Continue fluoxetine 80mg daily Patient educated on all medications including potential benefits, side effects, risks. Educated on proper dosing schedule and importance of compliance. Counseling resources provided Previous records reviewed for coninuity of care -Assessment and treatment plan reviewed with patient. -Compliance with treatment plan importance discussed. -Discussed the risks/benefits of this medication -Discussed medication side effects. -Contact office if symptoms worsen. -Discussed that it can take up to 6-8 weeks to see full therapeutic effects of psychotropic medications. -Crisis prevention hotline [phone]. Plan Of Treatment Next Appt Details Provider Name:Traci feliciano, 01/20/2025 04:30:00 PM, [address], [place], [address], Insurance Providers Payer Name Payer Address Payer Phone Subscriber Number Group Number Insured Name Patient Relationship to Insured Coverage Start Date Coverage End Date [facility] [address] [place] [address] [id number] CARSON MAY Self - patient is the insured Medical (General) History Medical History History ICD Code Problems: Generalized anxiety disorder Recurrent major depression in remission , Please check off any of the following medical conditions you currently have or have had in the past:: depression,gastrointestinal disorders Do you have any other diseas e, condition or problem not listed above that you feel we should know about? If so, Please explain:: Restless legs syndrome Surgical History Surgery Date(Month/Year) Removal of gallbladder (03409) 2 [place] [facility]
[2024-11-15 17:49] VITALS: BP 155/105; PULSE 100; RESP 16; TEMP 36.4; O2SAT 100
--- NOTE | 2024-11-15 17:55 | PC.NURSE ---
upon arrival to ED pt requesting waiting times - explained wait times are not available
--- NOTE | 2024-11-15 18:43 | ED_ITS ---
HPI - Abdominal Pain General Chief Complaint: Abdominal Pain <Nalini Bautista PA-C - Last Filed: 11/16/24 10:23> Stated Complaint: abd pain <Nalini Bautista PA-C - Last Filed: 11/16/24 10:23> Time Seen by Provider: 11/15/24 18:43 <Nalini Bautista PA-C - Last Filed: 11/16/24 10:23> Focused HPI: This is a 39 year old female that presents to the ER for abdominal pain. Reports history of microscopic colitis. Reports she feels this is a flare. Reports vomiting and diarrhea. Denies fevers. GENERAL: Well-appearing, well-nourished, and in no acute distress. HEAD: Normocephalic, atraumatic. CHEST: Clear to auscultation. ?No respiratory distress. HEART: Regular rate and rhythm.? NEURO: ?Alert and oriented x3. Patient screened in triage and initial orders placed.? ?Additional care and disposition to be based upon?diagnostic testing and treatment. <Nalini Bautista PA-C - Last Filed: 11/16/24 10:23> History of Present Illness HPI narrative: I agree with the above HPI <Binu Pham MD - Last Filed: 11/16/24 04:11> Related Data Home Medications: Home Medications ?Medication ?Instructions ?Recorded ?Confirmed ?Last Taken ?Type fluoxetine 40 mg capsule 80 mg PO DAILY 07/03/2310/28 Unknown History <Nalini Bautista PA-C - Last Filed: 11/16/24 10:23> Allergies/Adverse Reactions: Allergies Allergy/AdvReac Type Severity Reaction Status Date / Time No Known Allergies Allergy Verified 11/15/24 17:51 <Nalini Bautista PA-C - Last Filed: 11/16/24 10:23> Review of Systems 2 Review of Systems: All systems reviewed & are unremarkable except as noted in HPI and below <Binu Pham MD - Last Filed: 11/16/24 04:11> PMFSH Past Medical History Medical History: Medical History IBS (irritable bowel syndrome) Anxiety and depression Restless leg <Nalini Bautista PA-C - Last Filed: 11/16/24 10:23> Surgical History Surgical History: Surgical History (Reviewed 11/11/24 @ 15:16 by Angelina Irizarry [facility]) History of tonsillectomy History of cholecystectomy <Nalini Bautista PA-C - Last Filed: 11/16/24 10:23> Family History Family History: Family History Father MDS (myelodysplastic syndrome) Leukemia Mother Hypertension Grandparent Heart disease Cerebrovascular accident <Nalini Bautista PA-C - Last Filed: 11/16/24 10:23> Social History Social History: Social History (Reviewed 11/11/24 @ 15:16 by Angelina Irizarry [facility]) Years smoked: 15 Smoking status: Former smoker Tobacco type: cigarettes Alcohol intake: never Substance use: current Substance use type: marijuana Do You Feel Safe in your Home?: Yes Lack of Transportation: No Lack of Food: Never True Current Housing: I Have Housing Concerned About Future Housing: No Difficulty Paying Gas/Electric Bills: No Difficulty Paying for Meds: No Currently Unemployed: No Education: Bachelor's Degree Difficulty w/ Childcare or Family Care: No Living arrangements: with family Gender identity (if verbalized by the patient): Female Spiritual care concerns: No <Nalini Bautista PA-C - Last Filed: 11/16/24 10:23> Exam 2 Narrative: APPEARANCE: Well appearing, no pain, no distress, well-nourished. HEAD: normocephalic, atraumatic. EYES: PERRLA/EOMI, conjunctivae clear. NOSE: Normal no drainage EARS:TMS clear with good light reflex. THROAT: Pharynx clear, no exudate. NECK: Supple. No adenopathy, no masses. RESPIRATORY: Airway patent, respirations nonlabored. Clear to auscultation bilaterally, no rales, rhonchi, wheezing. CARDIOVASCULAR: Regular rate and rhythm without murmurs rubs or gallops. ABDOMINAL: diffuse abdominal tenderness to palpation, nonsurgical abdomen MUSCULOSKELETAL: Moves all extremities. Strength/ROM intact, No edema, No calf tenderness. NEURO: Alert. Cranial nerves II through XII intact. Good gait. Good coordination SKIN: Warm, dry. Normal Color <Binu Pham MD - Last Filed: 11/16/24 04:11> Course Vital Signs Vital signs: Vital Signs Temperature 97.6 F 11/15/24 17:49 Pulse Rate 100 11/15/24 17:49 Respiratory Rate 16 11/15/24 17:49 Blood Pressure 155/105 H 11/15/24 17:49 Pulse Oximetry 100 11/15/24 17:49 Oxygen Delivery Room Air 11/15/24 17:49 Temperature 97.6 F 11/15/24 17:49 Pulse Rate 100 11/15/24 17:49 Respiratory Rate 16 11/15/24 17:49 Blood Pressure 155/105 H 11/15/24 17:49 Pulse Oximetry 100 11/15/24 17:49 Oxygen Delivery Room Air 11/15/24 17:49 <Nalini Bautista PA-C - Last Filed: 11/16/24 10:23> Vital Signs Temperature 97.6 F 11/15/24 17:49 Pulse Rate 100 11/15/24 17:49 Respiratory Rate 16 11/15/24 17:49 Blood Pressure 155/105 H 11/15/24 17:49 Pulse Oximetry 100 11/15/24 17:49 Oxygen Delivery Room Air 11/15/24 17:49 Temperature 97.6 F 11/15/24 17:49 Pulse Rate 100 11/15/24 17:49 Respiratory Rate 16 11/15/24 17:49 Blood Pressure 155/105 H 11/15/24 17:49 Pulse Oximetry 100 11/15/24 17:49 Oxygen Delivery Room Air 11/15/24 17:49 <Binu Pham MD - Last Filed: 11/16/24 04:11> MDM - Abdominal Pain MDM Narrative Medical decision making narrative: 39-year-old female presents emergency department for evaluation for diffuse abdominal pain. Patient is afebrile but does have a leukocytosis of 18.9 hemoglobin of 14.0. No significant acute abnormalities the patient's CMP. UA did have some markers infection but did also have occasional squamous cells, patient denies any urinary symptoms, urine culture was ordered. Patient's urine test was negative. CT scan does show evidence of enterocolitis. With patient's history of micro colitis patient was advised to start taking the rifaximin that was prescribed by her GI physician, she was also treated with a short burst of steroids. <Binu Pham MD - Last Filed: 11/16/24 04:11> Differential Diagnosis Differential diagnosis: Likely abdominal pain, acute appendicitis, calculus of kidney, constipation, diverticulitis, gastroenteritis, pancreatitis and small bowel obstruction <Binu Pham MD - Last Filed: 11/16/24 04:11> Lab Data Attestation: I reviewed the patient's lab results. <Binu Pham MD - Last Filed: 11/16/24 04:11> Result diagrams: 11/15/24 19:55 11/15/24 19:55 <Nalini Bautista PA-C - Last Filed: 11/16/24 10:23> Labs: Lab Results 11/15/24 11/15/24 11/15/24 Range/Units 18:53 18:54 19:55 WBC 18.9 H (4.5-10.0) K/mm3 RBC 5.40 (4.2-5.4) M/mm3 Hgb 14.0 (12.0-15.0) g/dL Hct 43.4 (37.0-47.0) % MCV 80.4 (80-100) fl MCH 25.9 L (26-34) pg MCHC 32.3 (32-36) g/dl RDW 19.8 H (11.5-14.5) % Plt Count 272 (150-375) k/mm3 MPV 8.1 (7.4-10.4) fl Immature Gran % (Auto) Not Reportable Neut % (Auto) Not Reportable Lymph % (Auto) Not Reportable [place] % (Auto) Not Reportable Eos % (Auto) Not Reportable Baso % (Auto) Not Reportable Lymph # (Auto) Not Reportable [place] # (Auto) Not Reportable Eos # (Auto) Not Reportable Baso # (Auto) Not Reportable Abs Immat Gran (auto) Not Reportable Absolute Neuts (auto) Not Reportable Absolute Nucleated RBC Not Reportable Total Counted 100 Neutrophils % (Manual) 70 (46-73) % Band Neutrophils % 5 (0-6) % Lymphocytes % (Manual) 7.0 L (18-44) % Monocytes % (Manual) 4 (3-9) % Eosinophils % (Manual) 14 H (0-4) % Nucleated RBC % Not Reportable Abs Neuts (Manual) 14.17 H (1.3-6.7) K/mm3 Abs Lymphs (Manual) 1.32 (1.1-4.5) K/mm3 Abs Monocytes (Manual) 0.75 (0.1-0.90) K/mm3 Absolute Eos (Manual) 2.64 H (0.02-0.50) K/mm3 Platelet Estimate Adequate (Adequate) Ovalocytes 1+ Schistocytes None seen Sodium 137 (137-145) mmol/L Potassium 3.6 (3.4-5.0) mmol/L Chloride 105 (98-107) mmol/L Carbon Dioxide 24 (22-30) mmol/L Anion Gap 8 (4-12) mmol/L BUN 13 D (7-17) mg/dL Creatinine 0.65 L (0.7-1.0) mg/dL Estim Creat Clear Calc 106 ml/min Estimated GFR > 60 (59 - ) Glucose 121 H (65-110) mg/dL Calcium 9.5 (8.4-10.2) mg/dL Total Bilirubin 0.5 (0.2-1.3) mg/dL AST 20 (14-36) U/L ALT 17 (6-35) U/L Alkaline Phosphatase 64 (38-126) U/L Total Protein 6.8 (6.3-8.2) g/dL Albumin 4.0 (3.5-5.1) g/dL Lipase 59 (23-300) U/L Urine Color Yellow (Yellow) Urine Appearance Clear (Clear) Urine pH 5.5 (5.0-9.0) Ur Specific [place] 1.026 (1.001-1.035) Urine Protein Negative (Negative) mg/dL Urine Glucose (UA) Negative (Negative) mg/dL Urine Ketones Trace H (Negative) mg/dL Ur Blood (Man) Negative (Negative) Urine Nitrate Negative (Negative) Urine Bilirubin Negative (Negative) Urine Urobilinogen 0.2 (<2.0) mg/dL Add Ur Microanalysis Reviewed Leukocyte Esterase Rfl 2+ H (Negative) ORTEGA/UL Urine RBC 6-10 H (0-2) /hpf Urine WBC 21-50 H (0-3) /hpf Ur Squamous Epith Cells Occasional (Few) /hpf Calcium Oxalate Crystal Present (None) /hpf Urine Bacteria 1+ H /hpf Urine Casts 0-2 POC Urine HCG, Qual Negative (Negative) <aNlini Bautista PA-C - Last Filed: 11/16/24 10:23> Lab Results 11/15/24 11/15/24 11/15/24 Range/Units 18:53 18:54 19:55 WBC 18.9 H (4.5-10.0) K/mm3 RBC 5.40 (4.2-5.4) M/mm3 Hgb 14.0 (12.0-15.0) g/dL Hct 43.4 (37.0-47.0) % MCV 80.4 (80-100) fl MCH 25.9 L (26-34) pg MCHC 32.3 (32-36) g/dl RDW 19.8 H (11.5-14.5) % Plt Count 272 (150-375) k/mm3 MPV 8.1 (7.4-10.4) fl Immature Gran % (Auto) Not Reportable Neut % (Auto) Not Reportable Lymph % (Auto) Not Reportable [place] % (Auto) Not Reportable Eos % (Auto) Not Reportable Baso % (Auto) Not Reportable Lymph # (Auto) Not Reportable [place] # (Auto) Not Reportable Eos # (Auto) Not Reportable Baso # (Auto) Not Reportable Abs Immat Gran (auto) Not Reportable Absolute Neuts (auto) Not Reportable Absolute Nucleated RBC Not Reportable Total Counted 100 Neutrophils % (Manual) 70 (46-73) % Band Neutrophils % 5 (0-6) % Lymphocytes % (Manual) 7.0 L (18-44) % Monocytes % (Manual) 4 (3-9) % Eosinophils % (Manual) 14 H (0-4) % Nucleated RBC % Not Reportable Abs Neuts (Manual) 14.17 H (1.3-6.7) K/mm3 Abs Lymphs (Manual) 1.32 (1.1-4.5) K/mm3 Abs Monocytes (Manual) 0.75 (0.1-0.90) K/mm3 Absolute Eos (Manual) 2.64 H (0.02-0.50) K/mm3 Platelet Estimate Adequate (Adequate) Ovalocytes 1+ Schistocytes None seen Sodium 137 (137-145) mmol/L Potassium 3.6 (3.4-5.0) mmol/L Chloride 105 (98-107) mmol/L Carbon Dioxide 24 (22-30) mmol/L Anion Gap 8 (4-12) mmol/L BUN 13 D (7-17) mg/dL Creatinine 0.65 L (0.7-1.0) mg/dL Estim Creat Clear Calc 106 ml/min Estimated GFR > 60 (59 - ) Glucose 121 H (65-110) mg/dL Calcium 9.5 (8.4-10.2) mg/dL Total Bilirubin 0.5 (0.2-1.3) mg/dL AST 20 (14-36) U/L ALT 17 (6-35) U/L Alkaline Phosphatase 64 (38-126) U/L Total Protein 6.8 (6.3-8.2) g/dL Albumin 4.0 (3.5-5.1) g/dL Lipase 59 (23-300) U/L Urine Color Yellow (Yellow) Urine Appearance Clear (Clear) Urine pH 5.5 (5.0-9.0) Ur Specific [place] 1.026 (1.001-1.035) Urine Protein Negative (Negative) mg/dL Urine Glucose (UA) Negative (Negative) mg/dL Urine Ketones Trace H (Negative) mg/dL Ur Blood (Man) Negative (Negative) Urine Nitrate Negative (Negative) Urine Bilirubin Negative (Negative) Urine Urobilinogen 0.2 (<2.0) mg/dL Add Ur Microanalysis Reviewed Leukocyte Esterase Rfl 2+ H (Negative) ORTEGA/UL Urine RBC 6-10 H (0-2) /hpf Urine WBC 21-50 H (0-3) /hpf Ur Squamous Epith Cells Occasional (Few) /hpf Calcium Oxalate Crystal Present (None) /hpf Urine Bacteria 1+ H /hpf Urine Casts 0-2 POC Urine HCG, Qual Negative (Negative) <Binu Pham MD - Last Filed: 11/16/24 04:11> Imaging Data Radiologist's impression: ITS Impressions Abdomen/Pelvis CT 11/15/24 21:18 IMPRESSION: 1. Fluid-filled distended small bowel and colon with segmental thickening of the mid and distal small bowel, suspicious for enterocolitis. Consider infectious/inflammatory etiologies. 2: Ascites. 3: Small hiatal hernia with thickening of the distal esophagus, suspicious for esophagitis. <Nalini Bautista PA-C - Last Filed: 11/16/24 10:23> ITS Impressions Abdomen/Pelvis CT 11/15/24 21:18 IMPRESSION: 1. Fluid-filled distended small bowel and colon with segmental thickening of the mid and distal small bowel, suspicious for enterocolitis. Consider infectious/inflammatory etiologies. 2: Ascites. 3: Small hiatal hernia with thickening of the distal esophagus, suspicious for esophagitis. <Binu Pham MD - Last Filed: 11/16/24 04:11> Critical Care Time Critical Care Time Critical Care Time: No <Nalini Bautista PA-C - Last Filed: 11/16/24 10:23> Discharge Plan Discharge Clinical Impression: Enterocolitis Abdominal pain Qualifiers: Abdominal location: upper abdomen, unspecified Qualified Code(s): R10.10 - Upper abdominal pain, unspecified <Nalini Bautista PA-C - Last Filed: 11/16/24 10:23> Patient Disposition: Home <Nalini Bautista PA-C - Last Filed: 11/16/24 10:23> Condition: Stable <Nalini Bautisat PA-C - Last Filed: 11/16/24 10:23> Instructions: Antibiotic Form, Abdominal Pain (ED) <Nalini Bautista PA-C - Last Filed: 11/16/24 10:23> Additional Instructions: Continue your Xifaxan as directed. Zofran for nausea control. [place] as needed for pain control. Prednisone as directed until completed. Continue to have close follow-up with your GI physician. <Nalini Bautista PA-C - Last Filed: 11/16/24 10:23> Patient Language: Amharic <Nalini Bautista PA-C - Last Filed: 11/16/24 10:23> Prescriptions: New hydrocodone-acetaminophen 5-325 mg tablet 1 tablet PO Q12H PRN (Reason: pain) Qty: 14 0RF ondansetron 4 mg tablet,disintegrating 4 mg PO Q8H PRN (Reason: nausea and vomiting) Qty: 14 0RF prednisone 50 mg tablet 50 mg PO DAILY 5 Days Qty: 5 0RF No Action fluoxetine 40 mg capsule 80 mg PO DAILY Xifaxan 550 mg tablet 550 mg PO TID 14 Days Qty: 42 1RF diphenoxylate-atropine [Lomotil] 2.5-0.025 mg tablet 1 tablet PO TID Qty: 90 5RF hydroxyzine HCl 10 mg tablet 10 mg PO TID PRN (Reason: itching) Qty: 30 0RF Zepbound 12.5 mg/0.5 mL pen injector 12.5 mg subcut WEEKLY Qty: 2 4RF omeprazole 40 mg capsule,delayed release(DR/EC) See Rx Instructions .ROUTE .COMPLEX Qty: 90 3RF Dose Instruction: TAKE 1 CAPSULE BY MOUTH DAILY Rx Instructions: TAKE 1 CAPSULE BY MOUTH DAILY pramipexole 0.125 mg tablet 0.125 mg PO QHS Qty: 90 1RF atorvastatin 10 mg tablet See Rx Instructions .ROUTE .COMPLEX Qty: 90 1RF Dose Instruction: TAKE 1 TABLET BY MOUTH DAILY AT BEDTIME Rx Instructions: TAKE 1 TABLET BY MOUTH DAILY AT BEDTIME budesonide 3 mg capsule,delayed,extend.release 9 mg PO DAILY Qty: 90 1RF <Nalini Bautista PA-C - Last Filed: 11/16/24 10:23> Follow-up/Referrals: Yenny Perla DO [Primary Care Provider, Family Practice] <Nalini Bautista PA-C - Last Filed: 11/16/24 10:23>
[2024-11-15 18:55] LABS: BEDSIDEPREGUCG Negative (Negative)
[2024-11-15 19:28] LABS: Add Urine Microscopic? YES; Appearance Urine Clear (Clear); Glucose Urine UA Negative (Negative); Leukocyte Esterase Ur 2+ LEU/UL (Negative); Need Manual Microscopic Reviewed; Nitrate Urine Negative (Negative); Non Pathogenic Casts 0-2; Specific Grav Ur 1.026 (1.001-1.035)
--- NOTE | 2024-11-15 19:31 | ED.GENADULT ---
HPI - General Adult General Chief complaint: Abdominal Pain Stated complaint: abd pain Time Seen by Provider: 11/15/24 18:43 History of Present Illness HPI narrative: 39-year-old female presents emergency department for evaluation for worsening abdominal pain with associated nausea vomiting and diarrhea. Patient does have history if eosinophilic esophagitis. Patient also has a history of micro colitis. Patient does follow-up with Dr. Muir. Patient states since she has had worsening diarrhea but since last night she had onset of nausea vomiting and diffuse abdominal pain. Related Data Home Medications ?Medication ?Instructions ?Recorded ?Confirmed ?Last Taken ?Type fluoxetine 40 mg capsule 80 mg PO DAILY 07/03/23 11/11/24 Unknown History Allergies Allergy/AdvReac Type Severity Reaction Status Date / Time No Known Allergies Allergy Verified 11/15/24 17:51 Review of Systems Review of Systems: All systems reviewed & are unremarkable except as noted in HPI and below PMFSH Past Medical History Medical History IBS (irritable bowel syndrome) Anxiety and depression Restless leg Surgical History Surgical History History of tonsillectomy History of cholecystectomy Family History Family History Father MDS (myelodysplastic syndrome) Leukemia Mother Hypertension Grandparent Heart disease Cerebrovascular accident Social History Social History Years smoked: 15 Smoking status: Former smoker Tobacco type: cigarettes Alcohol intake: never Substance use: current Substance use type: marijuana Do You Feel Safe in your Home?: Yes Lack of Transportation: No Lack of Food: Never True Current Housing: I Have Housing Concerned About Future Housing: No Difficulty Paying Gas/Electric Bills: No Difficulty Paying for Meds: No Currently Unemployed: No Education: Bachelor's Degree Difficulty w/ Childcare or Family Care: No Living arrangements: with family Gender identity (if verbalized by the patient): Female Spiritual care concerns: No Exam Narrative: APPEARANCE: Well appearing, no pain, no distress, well-nourished. HEAD: normocephalic, atraumatic. EYES: PERRLA/EOMI, conjunctivae clear. NOSE: Normal no drainage EARS:TMS clear with good light reflex. THROAT: Pharynx clear, no exudate. NECK: Supple. No adenopathy, no masses. RESPIRATORY: Airway patent, respirations nonlabored. Clear to auscultation bilaterally, no rales, rhonchi, wheezing. CARDIOVASCULAR: Regular rate and rhythm without murmurs rubs or gallops. ABDOMINAL: Diffuse abdominal tenderness to palpation MUSCULOSKELETAL: Moves all extremities. Strength/ROM intact, No edema, No calf tenderness. NEURO: Alert. Cranial nerves II through XII intact. Good gait. Good coordination SKIN: Warm, dry. Normal Color Course Vital Signs Vital signs: Vital Signs Temperature 97.6 F 11/15/24 17:49 Pulse Rate 100 11/15/24 17:49 Respiratory Rate 16 11/15/24 17:49 Blood Pressure 155/105 H 11/15/24 17:49 Pulse Oximetry 100 11/15/24 17:49 Oxygen Delivery Room Air 11/15/24 17:49 Temperature 97.6 F 11/15/24 17:49 Pulse Rate 100 11/15/24 17:49 Respiratory Rate 16 11/15/24 17:49 Blood Pressure 155/105 H 11/15/24 17:49 Pulse Oximetry 100 11/15/24 17:49 Oxygen Delivery Room Air 11/15/24 17:49 Medical Decision Making Vital Signs Vital Signs: Vital Signs Temperature 97.6 F 11/15/24 17:49 Pulse Rate 100 11/15/24 17:49 Respiratory Rate 16 11/15/24 17:49 Blood Pressure 155/105 H 11/15/24 17:49 Pulse Oximetry 100 11/15/24 17:49 Oxygen Delivery Room Air 11/15/24 17:49 Temperature 97.6 F 11/15/24 17:49 Pulse Rate 100 11/15/24 17:49 Respiratory Rate 16 11/15/24 17:49 Blood Pressure 155/105 H 11/15/24 17:49 Pulse Oximetry 100 11/15/24 17:49 Oxygen Delivery Room Air 11/15/24 17:49 Lab Data Labs: Lab Results 11/15/24 11/15/24 Range/Units 18:53 18:54 Urine Color Yellow (Yellow) Urine Appearance Clear (Clear) Urine pH 5.5 (5.0-9.0) Ur Specific [place] 1.026 (1.001-1.035) Urine Protein Negative (Negative) mg/dL Urine Glucose (UA) Negative (Negative) mg/dL Urine Ketones Trace H (Negative) mg/dL Ur Blood (Man) Negative (Negative) Urine Nitrate Negative (Negative) Urine Bilirubin Negative (Negative) Urine Urobilinogen 0.2 (<2.0) mg/dL Add Ur Microanalysis Reviewed Leukocyte Esterase Rfl 2+ H (Negative) ORTEGA/UL Urine RBC 6-10 H (0-2) /hpf Urine WBC 21-50 H (0-3) /hpf Ur Squamous Epith Cells Occasional (Few) /hpf Calcium Oxalate Crystal Present (None) /hpf Urine Bacteria 1+ H /hpf Urine Casts 0-2 POC Urine HCG, Qual Negative (Negative) Discharge Plan Discharge Instructions: Antibiotic Form Patient Language: Romansh Prescriptions: No Action fluoxetine 40 mg capsule 80 mg PO DAILY Xifaxan 550 mg tablet 550 mg PO TID 14 Days Qty: 42 1RF diphenoxylate-atropine [Lomotil] 2.5-0.025 mg tablet 1 tablet PO TID Qty: 90 5RF hydroxyzine HCl 10 mg tablet 10 mg PO TID PRN (Reason: itching) Qty: 30 0RF Zepbound 12.5 mg/0.5 mL pen injector 12.5 mg subcut WEEKLY Qty: 2 4RF omeprazole 40 mg capsule,delayed release(DR/EC) See Rx Instructions .ROUTE .COMPLEX Qty: 90 3RF Dose Instruction: TAKE 1 CAPSULE BY MOUTH DAILY Rx Instructions: TAKE 1 CAPSULE BY MOUTH DAILY pramipexole 0.125 mg tablet 0.125 mg PO QHS Qty: 90 1RF atorvastatin 10 mg tablet See Rx Instructions .ROUTE .COMPLEX Qty: 90 1RF Dose Instruction: TAKE 1 TABLET BY MOUTH DAILY AT BEDTIME Rx Instructions: TAKE 1 TABLET BY MOUTH DAILY AT BEDTIME budesonide 3 mg capsule,delayed,extend.release 9 mg PO DAILY Qty: 90 1RF Follow-up/Referrals: Yenny Perla DO [Primary Care Provider, Family Practice]
[2024-11-15] MEDS: LACTATED RINGERS 1,000 ML 999 ML IV CONT (20:00)
[2024-11-15] MEDS: ONDANSETRON INJ 4 MG/2 ML VIAL IV PUSH (20:00)
[2024-11-15] MEDS: FAMOTIDINE 20 MG/2 ML VIAL IV PUSH (20:00)
[2024-11-15 20:01] LABS: Hematocrit 43.4 % (37.0-47.0); Hemoglobin 14.0 g/dL (12.0-15.0); Mean Corpuscular HGB Conc 32.3 g/dl (32-36); Mean Corpuscular Hemoglobin 25.9 pg (26-34); Mean Corpuscular Volume 80.4 fl (80-100); Platelet Count Result 272 k/mm3 (150-375); Red Blood Count 5.40 M/mm3 (4.2-5.4); White Blood Count 18.9 K/mm3 (4.5-10.0)
[2024-11-15] MEDS: HYDROmorphone HCL INJ (*CRX) 1 MG/ML SYR IV PUSH (20:01)
[2024-11-15] MEDS: KETOROLAC 15 MG/ML VIAL (*BKC) IV PUSH (20:05)
[2024-11-15 20:11] LABS: Alanine Aminotransferase 17 U/L (6-35); Albumin Level 4.0 g/dL (3.5-5.1); Alkaline Phosphatase 64 U/L (38-126); Anion Gap 8 mmol/L (4-12); Aspartate Amino Transferase 20 U/L (14-36); Bilirubin,Total 0.5 mg/dL (0.2-1.3); Blood Urea Nitrogen 13 mg/dL (7-17); Calcium 9.5 mg/dL (8.4-10.2); Carbon Dioxide 24 mmol/L (22-30); Chloride 105 mmol/L (98-107); Estimated CRCL calculation 106 ml/min; Estimated Glomerular Filt Rate > 60; Glucose 121 mg/dL (65-110); Lipase 59 U/L (23-300); Potassium 3.6 mmol/L (3.4-5.0); Sodium 137 mmol/L (137-145); Total Protein 6.8 g/dL (6.3-8.2)
[2024-11-15 20:27] LABS: Band Neutrophils Percent 5 % (0-6); Eosinophils Absolute Manual 2.64 K/mm3 (0.02-0.50); Eosinophils Percent Manual 14 % (0-4); Lymphocytes Absolute Manual 1.32 K/mm3 (1.1-4.5); Lymphocytes Percent Manual 7.0 % (18-44); Monocytes Absolute Manual 0.75 K/mm3 (0.1-0.90); Monocytes Percent Manual 4 % (3-9); Neutrophils Absolute Manual 14.17 K/mm3 (1.3-6.7); Neutrophils Percent Manual 70 % (46-73); Ovalocytes 1+; Total Cells Counted 100
[2024-11-15 20:28] LABS: Schistocytes None Seen
[2024-11-15] MEDS: HYDROmorphone HCL INJ (*CRX) 1 MG/ML SYR 0.5 MG IV PUSH (21:52)
--- OUTSIDE RECORDS SUMMARY | 2024-11-15 21:52 | XMS_ITS | Clinical Summary ---
Author Organization [facility] Building A Address [address] [place] [address] Care Team Providers Care Material Requirements Worker Name Role Phone Collin Pascal MD Primary [...] OTHER SURGICAL HISTORY 2013 abd pain, vomiting: [facility] ER Visit OTHER SURGICAL HISTORY excisional [...] on file Legal Sex Female 11:55 PM [employer] Gender Identity Not on file Sexual Orientation [...] Plan of Treatment Not on file [place] [address] [place] [address] CHOICE PLUS [place] [id number] [facility] CHOICE PLUS Care Teams Material Requirements Worker Relationship Specialty Start Date End Date Collin Pascal MD [address] [place] [address] PCP - General 06/27/16
--- OUTSIDE RECORDS SUMMARY | 2024-11-15 21:52 | XMS_ITS | Clinical Summary ---
Author Organization [facility] Address [address] [facility] [place] [address] Care Team Providers Care Control Clerk Auditing Name Role Phone Miguelina Arrieta MD Unavailable [phone] Collin Pascal MD Primary Care Provider [phone] Source Comments [facility],non-owned Affiliates and Associated Physician Practices is amultiple site organization consisting of ambulatory clinics and hospital sitesin [place], [place], [place] and [place]. This disclosure is being madepursuant to the Care Everywhere program and may not contain all information available regarding this patient. 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 Not on file Not on file Not on file Last Filed Vital Signs Vital Sign Reading Time Taken Comments Blood Pressure 147/72 06/08/2020 8:30 PM FIELD SUPPORT ENGINEER Pulse 52 06/08/2020 8:30 PM FIELD SUPPORT ENGINEER Temperature 36.3 C (97.3 F) 06/08/2020 2:16 PM FIELD SUPPORT ENGINEER Respiratory Rate 21 06/08/2020 8:30 PM FIELD SUPPORT ENGINEER Oxygen Saturation 93% 06/08/2020 8:30 PM FIELD SUPPORT ENGINEER Inhaled Oxygen Concentration - - Weight 95.3 kg (210 lb) 06/08/2020 2:16 PM FIELD SUPPORT ENGINEER Height 162.6 cm (5' 4) 06/08/2020 2:16 PM FIELD SUPPORT ENGINEER Body Mass Index 36.05 06/08/2020 2:16 PM FIELD SUPPORT ENGINEER Plan of Treatment Health Maintenance Due Date [...] HEPATITIS SCREEN ACUTE Routine 05/24/2018 3:27 PM FIELD SUPPORT ENGINEER Eosinophilia HIV-1 HIV-2 ANTIBODY + HIV P24 AG PANEL Routine 04/15/2018 5:14 PM FIELD SUPPORT ENGINEER PAP W PEDRO HPV HR+HPV 16/18 Routine 01/08/2016 6:02 PM CDT Well woman exam with routine gynecological exam Special screening examination for human papillomavirus (HPV) from Last 3 Months or Most Recently Relevant to Health Maintenance Results * HEPATITIS SCREEN ACUTE (05/24/2018 3:27 PM FIELD SUPPORT ENGINEER) Hepatitis A Virus Antibody IgM Negative Negative [...] with a HCV Nucleic Acid Amplification test (646327). Blood BLOOD SPECIMEN / Unknown 05/24/2018 3:27 PM FIELD SUPPORT ENGINEER 05/24/2018 Narrative Resulting Agency Comment [facility] [address] [facility] [id number] Shaquille Franco MD LAB - CHEMISTRY ORDERABLES Final Result [facility] ACCOUNT BILL [address] [place] [address] * HIV-1 HIV-2 ANTIBODY + HIV P24 AG PANEL (04/15/2018 5:14 PM FIELD SUPPORT ENGINEER) HIV1/2 Ab + P24 Ag Non Reactive Non Reactive 04/16/2018 11:49 AM FIELD SUPPORT ENGINEER [facility] Blood BLOOD SPECIMEN / Unknown Lab Venipuncture / Unknown 04/15/2018 5:14 PM FIELD SUPPORT ENGINEER 04/15/2018 5:42 PM FIELD SUPPORT ENGINEER Narrative [facility] - 04/16/2018 11:49 AM FIELD SUPPORT ENGINEER No Laboratory evidence of HIV infection. Annita Coppola MD LAB - CHEMISTRY ORDERABLES Final Result [facility] [place] [address] * PAP W PEDRO HPV HR+HPV 16/18 [...] CYTYC Thin Prep Vial Resulting Agency Comment [facility] [id number] [place] Miguelina Arrieta MD LAB - PATHOLOGY/CYTOLOGY RAMIRO DORADO Final Result [facility] ACCOUNT BILL [address] [place] [address] from Last 3 Months or Most Recently Relevant to Health Maintenance Insurance [facility] [place] [id number] [facility] [place] [id number] * Guarantor: VICKY RUBIN Account Type Relation to Patient Date of Phone Billing Address Personal/Family [address] [place] [address] [facility] SELF PAY NO INSURANCE Member Subscriber Plan / Payer (Ef fective for All Dates) Name:RubinVicky Member ID:Not on file Relation to Subscriber:Not on file Name:RUBINVICKY Subscriber ID:Not on file Address: [address] [place], [address] Payer ID:Not on file Group ID:Not on file Type:Self Pay Address: [place], [place] * Guarantor: VICKY RUBIN Account Type Relation to Patient Date of Phone Billing Address Personal/Family [address] [place], [id number] [employer] SELF PAY NO INSURANCE Member Subscriber Plan / Payer (Ef fective for All Dates) Name:Scottie Vicky Member ID:Not on file Relation to Subscriber:Not on file Name:RUBINVICKY Subscriber ID:Not on file Address: [address] [place], [address] Payer ID:Not on file Group ID:Not on file Type:Self Pay Address: [place], [place] * Guarantor: VICKY RUBIN Account Type Relation to Patient Date of Phone Billing Address Personal/Family [address] [place], [address] [employer] SELF PAY NO INSURANCE Member Subscriber Plan / Payer (Ef fective for All Dates) Name:Vicky Rubin Member ID:Not on file Relation to Subscriber:Not on file Name:VICKY RUBIN Subscriber ID:Not on file Address: [address] [place], [id number] Payer ID:Not on file Group ID:Not on file Type:Self Pay Address: [place], [place] Advance Directives * Full Code (Latest Code Status on File) Date Activated Date Inactivated Comments 04/15/2018 4:15 PM 04/19/2018 4:20 PM * Full Code Date Activated Date Inactivated Comments 04/15/2018 2:52 PM 04/15/2018 4:15 PM Care Teams Control Clerk Auditing Relationship Specialty [place] [address] [place] [address] PCP - General Internal Medicine 01/08/16 [place] [address] [place] [address] Obstetrics and Gynecology 12/22/12
== END 2024-11-15 22:09 | disposition home or self-care (01) ==
LOC: ANHED 21:50
PROVIDERS: Physician Assistant; Emergency Provider Emergency Medicine; PCP Family Medicine
DX: R10.9 Unspecified abdominal pain (principal); R10.10 Upper abdominal pain, unspecified; K52.9 Noninfective gastroenteritis and colitis, unspecified; F41.9 Anxiety disorder, unspecified; F32.A Depression, unspecified; G25.81 Restless legs syndrome
CPT/HCPCS: 36415; 74177; 80053; 81001; 81025; 83690; 85025; 87086; 96361; 96374; 96375; 96376; 99284; J1171; J1885; J2405; J7120; Q9967